=== PATIENT | female | born 1965 | race American Indian/Alaskan Native ===

== ENCOUNTER 2018-04-07 13:46 | Emergency (ER) | payer MEDICARE, OTHER ==
[~2018-04-07] VITALS: Ht 185.4 cm; Wt 126.2 kg
[~2018-04-07 13:46] MED LIST: ALLERGY10 M1 PO; B-12500 MCG PO; BACTRIM DS TAB1 EACH PO; CALCIUM + VITA1 EACH PO; CALCIUM500 M1 PO; CITALOPRAM HBR40 MG PO; CLINDAMYCIN HC300 MG PO; CRESTOR10 MG PO; D-20002000 UNIT PO; FLUTICASONE PRO16 GM NAS; HEARTBURN RELI150 MG PO; HIBICLENS118 ML TOP; HYDROCODON-ACE1 EA10 PO; IBUPROFEN600 MG PO; KEFLEX500 MG PO; KERLIX1 EAC2 TOP; LEVAQUIN500 MG PO; LEVOTHYROXINE25 MCG PO; MOTRIN IB200 MG PO; NAPROSYN500 MG PO; NAPROXEN500 MG PO; NICOTINE PATCH1 EACH TD; NORCO 10-325 T1 EACH PO; NORCO 5-325 TA1 EACH PO; NORCO 7.5-3251 EACH PO; PERCOCET 10-321 EACH PO; STOOL SOFTENER100 M1 PO; SULFAMETHOXAZO1 EAC1 PO; TRAMADOL HCL50 MG PO; WELLBUTRIN XL150 MG PO
[2018-04-07] MEDS ORDERED: MEROPENEM1 GM IV (14:03)
[2018-04-07] MEDS ORDERED: NORCO 5-325 TA1 EACH PO (14:04)
[2018-04-07] MEDS ORDERED: GABAPENTIN300 MG PO (14:04)
== END 2018-04-07 15:28 | disposition home or self-care (01) ==
LOC: ED 13:46
DX: Z45.2 Encounter for adjustment and management of vascular access device (principal); F32.9 Major depressive disorder, single episode, unspecified; Z87.891 Personal history of nicotine dependence; Z88.0 Allergy status to penicillin; Z88.5 Allergy status to narcotic agent; Z79.899 Other long term (current) drug therapy; Z79.891 Long term (current) use of opiate analgesic
CPT/HCPCS: 99283

== ENCOUNTER 2022-08-26 16:44 | Emergency (ER) | payer MEDICARE, OTHER ==
[~2022-08-26] VITALS: Ht 185.4 cm; Wt 122.0 kg
[~2022-08-26 16:44] MED LIST changes: +EPIN0.3P; +EZALLOR SPRINKL10 MG PO; +GABAPENTIN300 MG PO; +MELOXICAM15 MG PO; +MEROPENEM1 GM IV; +PANTOPRAZOLE SO40 MG PO; +ULTRAM50 MG PO
--- OUTSIDE RECORDS SUMMARY | 2022-08-26 16:46 | XMS ---
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 Steffen has no Care Guidelines for this patient. [place]dal[place] VISIT COUNT (12 MO.) 1 MASHA Jaimes TOTAL 1 NOTE: Visits indicate total known visits. ED/C VISIT TRACKING (12 MO.) 08/26/2022 16:45 MASHA Munoz OR TYPE: Emergency COMPLAINT: - FALL INPATIENT VISIT TRACKING (12 MO.) No inpatient visits to display in this time frame [id number]
[2022-08-26] MEDS ORDERED: ESTRADIOL0.5 MG PO (17:03)
[2022-08-26] MEDS ORDERED: MEDROXYPROGEST2.5 MG PO (17:04)
[2022-08-26] MEDS ORDERED: LISINOPRIL10 MG PO (17:04)
[2022-08-26] MEDS ORDERED: NAPROSYN500 MG PO (17:40)
== END 2022-08-26 18:11 | disposition home or self-care (01) ==
LOC: ED 16:44
DX: S50.02XA Contusion of left elbow, initial encounter (principal); S50.01XA Contusion of right elbow, initial encounter; S80.212A Abrasion, left knee, initial encounter; S80.211A Abrasion, right knee, initial encounter; W18.30XA Fall on same level, unspecified, initial encounter; Z87.891 Personal history of nicotine dependence; Z88.0 Allergy status to penicillin; Z88.5 Allergy status to narcotic agent; Z79.899 Other long term (current) drug therapy
CPT/HCPCS: 73080; 82164; A9270

== ENCOUNTER 2023-12-10 07:15 | Day surgery (SDC) | payer MEDICARE, OTHER ==
[~2023-12-10] VITALS: Ht 185.4 cm; Wt 104.5 kg
[~2023-12-10 07:15] MED LIST changes: +ESTRADIOL0.5 MG PO; +LISINOPRIL10 MG PO; +LYRICA100 MG PO; +MEDROXYPROGEST2.5 MG PO; +TYLENOL325 MG PO; +ZANAFLEX4 M1 PO
[2023-12-10 07:39] VITALS: BP 118/66
--- NOTE | 2023-12-10 07:46 | NUR ---
Neeta MCKEON AT BS. IV ABX STARTED TAKES 1 HR. IS COMFORTABLE AND DENIES ANY NEEDS.
--- NOTE | 2023-12-10 08:44 | NUR ---
vancomycin infused. lr infusing preop.
[2023-12-10] MEDS ORDERED: CELECOXIB200 MG PO (10:27)
[2023-12-10] MEDS ORDERED: HYDROCODON-ACE1 EA10 PO (10:27)
--- NOTE | 2023-12-10 10:42 | NUR ---
12/10/23 1042 Daksha Garcia 1032 PT TO PACU ORAL AIRWAY IN PLACE O2 ON 10L VIA MASK, FOGGING NOTED IN MASK.
[2023-12-10 11:10] VITALS: BP 121/63
--- NOTE | 2023-12-10 11:15 | NUR ---
STATES HAS NUMBNESS L FOOT ALL THE TIME.
[2023-12-10 11:57] VITALS: BP 113/57
--- NOTE | 2023-12-10 12:03 | NUR ---
RATES PAIN 5/10 REQUESTS PAIN PILL AND GIVEN. ATE CRACKERS AND DRANK COFFEE.
--- NOTE | 2023-12-10 12:29 | NUR ---
AMB IN HALLWAY WITH CRUTCHES VOIDS QS. WANTS TO GO HOME.
--- NOTE | 2023-12-10 12:31 | NUR ---
RATES PAIN 4/10
--- NOTE | 2023-12-10 12:55 | OR ---
[facility] [address], [place] [address] Signed DATE OF OPERATION: 12/10/2023 SURGEON: Darvin Garcia MD PREOPERATIVE DIAGNOSIS: Lateral meniscus tear, left knee. POSTOPERATIVE DIAGNOSIS: Lateral meniscus tear, left knee. PROCEDURE PERFORMED: Left knee arthroscopy with partial lateral meniscectomy. MED ADMIN: Juana Hernandez PA-C. ANESTHESIA: General. BLOOD LOSS: Minimal. BRIEF HISTORY: Johanny is a 58-year-old female. She had pain and locking in her knee with minimal arthritic changes. Risks and benefits of operative treatment were discussed with her and she elected to proceed. Once consent was obtained, she was taken to the operating room. After adequate anesthesia, she was placed on the operating room table. Her right leg was flexed, abducted, and externally rotated on a well-padded leg alcantara. Left was placed in a proximal leg alcantara. The leg was then prepped and draped in a standard sterile fashion. The portal sites were injected using 0.25% Marcaine with epinephrine. A standard inferolateral and superolateral portal was made and the scope was introduced into the knee. ARTHROSCOPIC FINDINGS: Moderate to significant synovitis was noted throughout the knee, particularly medially. The patella and femur showed grade 2 to grade 3 chondromalacia. There was good alignment. Medial and lateral gutters were clear, but there was extensive chondrocalcinosis throughout the knee. The ACL and PCL were intact. Lateral compartment showed diffuse grade 3 chondromalacia. There was a large complex tear Electronically Signed By: DARVIN GARCIA MD 12/10/23 1255 PATIENT NAME: JOHANNY GLEASON OPERATIVE REPORT DATE OF : 65 REPORT #: [id number] PHYSICIAN: DARVIN GARCIA MD PCP: ANDREA MAURICE REPORT IS CONFIDENTIAL AND NOT TO BE RELEASED WITHOUT AUTHORIZATION [facility] [address], [place] [address] Signed extending from the posterior horn all the way to the mid medial and anteriorly anterior corner. The medial meniscus was intact, but again with chondrocalcinosis. DESCRIPTION OF OPERATION: Diagnostic arthroscopy was undertaken as noted above. The lateral meniscus was trimmed back to a stable rim after establishing anteromedial portal and switching the scope over to that. We were then able to trim the meniscus back anteriorly and posteriorly and smooth the remnants down and further the mouth. All debris was evacuated. Several chondral flaps were removed too. The medial compartment showed a small chondral flap that was removed. Otherwise, no other work was done. The debris was evacuated and the scope was withdrawn. Portals were closed with 3-0 nylon and dressed with Adaptic, ABD, and Marco Antonio wrap. She tolerated the procedure well. All sponge, needle, and instrument counts were correct. Darvin Garcia MD BA/ROBERTL /[id number] Copies: ~ Electronically Signed By: DARVIN GARCIA MD 12/10/23 1255 PATIENT NAME: JOHANNY GLEASON OPERATIVE REPORT DATE OF : 65 REPORT #: [id number] PHYSICIAN: DARVIN GARCIA MD PCP: ANDREA MAURICE REPORT IS CONFIDENTIAL AND NOT TO BE RELEASED WITHOUT AUTHORIZATION
== END 2023-12-10 12:20 | disposition home or self-care (01) ==
LOC: DS 07:15
PROVIDERS: ATTEND Specialist
PROC: 0SJD4ZZ Inspection of Left Knee Joint, Percutaneous Endoscopic Approach (ICD-10-PCS; principal; 2023-12-10 09:20)
DX: S83.272A Complex tear of lateral meniscus, current injury, left knee, initial encounter (principal); M22.42 Chondromalacia patellae, left knee; F32.A Depression, unspecified; I10 Essential (primary) hypertension; E78.00 Pure hypercholesterolemia, unspecified; E03.9 Hypothyroidism, unspecified; F17.290 Nicotine dependence, other tobacco product, uncomplicated; Z88.0 Allergy status to penicillin; Z88.8 Allergy status to other drugs, medicaments and biological substances; X58.XXXA Exposure to other specified factors, initial encounter
CPT/HCPCS: 01400; J1100; J1885; J2250; J2405; J2704; J2765; J3010; J3370; J7060; J7121